=== PATIENT | male | born 1965 | race Two or more races ===

== ENCOUNTER 2022-10-13 06:18 | Day surgery (SDC) | payer BC ==
[~2022-10-13 06:18] MED LIST: Lactated Ringers 1,000 ML IV SCH; Lidocaine 1%/Sod Bicarbonate in NS 8.4% 1 ML Syringe IDERM PRN; Sodium Chloride 0.9% 10 ML Syringe FLUSH PRN; Sodium Chloride 0.9% 10 ML Syringe FLUSH SCH
[2022-10-13] MEDS ORDERED: Propofol 200 MG/20 ML SDV ONE (07:02)
[2022-10-13] MEDS ORDERED: Lidocaine 1% 4 ML ONE (07:02)
== END 2022-10-13 08:43 | disposition home or self-care (01) ==
LOC: JD.SDS 06:18
PROVIDERS: ATTEND Family Medicine
DX: K92.1 Melena (principal); F17.210 Nicotine dependence, cigarettes, uncomplicated; E78.00 Pure hypercholesterolemia, unspecified; Z79.899 Other long term (current) drug therapy; Z98.890 Other specified postprocedural states
CPT/HCPCS: 45378; J2704; J7120